=== PATIENT | male | born 1975 | race Caucasian/White ===

== ENCOUNTER 2019-12-13 10:04 | Emergency (ER) | payer OTHER, SELFPAY ==
[2019-12-13] MEDS ORDERED: Aspirin 325 MG TAB ONE (10:27)
[2019-12-13] MEDS ORDERED: Sodium Chloride 0.9% 1,000 ML ONE (10:27)
[2019-12-13] MEDS ORDERED: Acetaminophen 500 MG TAB ONE (10:27)
[2019-12-13] MEDS ORDERED: Ondansetron PF 4 MG/2 ML Vial ONE (10:27)
[2019-12-13 10:30] LABS: #Basophils 0.1 thou/uL (0.0-0.2); #Lymphocytes 1.3 thou/uL (1.20-3.40); #Monocytes 0.9 thou/uL (0.11-0.59); #Neutrophils 7.2 thou/uL (1.40-6.50); %Basophils 0.6 % (0.0-1.0); %Lymphocytes 13.7 % (21.0-51.0); %Monocytes 9.8 % (0.0-10.0); %Neutrophils 75.9 % (42.0-75.0); Hemoglobin 15.3 g/dL (14.0-18.0); Mean Corpuscular HGB CONC 31.6 g/dL (32.0-36.0); Mean Corpuscular Hemoglobin 27.3 pg (27.0-31.0); Mean Corpuscular Volume 86.5 fL (78.0-98.0); Mean Platelet Volume 8.7 fL (7.4-10.4); Platelet Count 209 thou/uL (130-400); RBC Distribution Width 11.3 % (11.5-14.5); White Blood Cell (WBC) Count 9.5 thou/uL (4.8-10.8)
--- NOTE | 2019-12-13 10:40 | RAD ---
EXAM: CHEST TWO VIEWS 12/13/2019 10:36 AM HISTORY: Cough COMPARISON: January 26, 2010 FINDINGS: Lungs: Mildly hyperinflated but clear Heart: Normal in size and contour. Pulmonary Vessels: Normal. Costophrenic Angles: Clear. Pneumothorax: None. Osseous Structures: Intact. Additional Findings: None. IMPRESSION: No significant acute intrathoracic disease.
[2019-12-13 10:44] LABS: ALT (SGPT) 14 U/L (8-55); AST (SGOT) 18 U/L (5-34); Albumin 4.1 g/dL (3.5-5.0); Alkaline Phosphatase 68 U/L (40-110); Anion Gap 16 mmol/L (10-20); BUN (Urea Nitrogen) 15 mg/dL (8.9-20.6); Bilirubin, Total 0.6 mg/dL (0.2-1.2); Calc. Creatinine Clearance 0 mL/min (70-130); Carbon Dioxide 23 mmol/L (22-29); Chloride 102 mmol/L (98-107); Estimated GFR-MDRD 90; Globulin 3.3 g/dL (2.4-3.5); Glucose 94 mg/dL (70-105); Protein, Total 7.4 g/dL (6.0-8.3); Sodium 137 mmol/L (136-145)
[2019-12-13] MEDS ORDERED: Oseltamivir 75 MG CAP ONE (11:09)
== END 2019-12-13 11:31 | disposition home or self-care (01) ==
LOC: MADERS 10:04
DX: J10.1 Influenza due to other identified influenza virus with other respiratory manifestations (principal); Z89.412 Acquired absence of left great toe; F17.290 Nicotine dependence, other tobacco product, uncomplicated
CPT/HCPCS: 36415; 71046; 80053; 83605; 84484; 85025; 87040; 87804; 96361; 96374; J2405; J7050